=== PATIENT | female | born 1950 | race Caucasian/White ===

== ENCOUNTER 2022-04-03 10:12 | Outpatient (CLI) | payer MEDICARE ==
[2022-04-03 11:55] LABS: Hemoglobin 13.4 g/dL (12.0-15.5); Mean Corpuscular HGB CONC 34.3 g/dL (32.0-36.0); Mean Corpuscular Hemoglobin 30.9 pg (27.0-33.0); Mean Corpuscular Volume 90.1 fl (81.6-98.3); Mean Platelet Volume 10.2 fl (7.4-10.4); Platelet Count 296 10x3/uL (150-450); RBC Distribution Width 12.8 % (11.5-14.5); Red Blood Cell (RBC) Count 4.34 10x6/uL (3.90-5.03); White Blood Cell (WBC) Count 7.5 10x3/uL (3.5-10.5)
[2022-04-03 12:16] LABS: INR-International Normal Ratio 0.9; PTT 24.2 sec (22.0-33.0); Prothrombin Time 10.3 sec (9.5-12.1)
[2022-04-03 12:17] LABS: Anion Gap 15 mmol/L (10-20); BUN (Urea Nitrogen) 9 mg/dL (9.8-20.1); Calc. Creatinine Clearance 0 mL/min (70-130); Calcium 9.6 mg/dL (7.8-10.44); Carbon Dioxide 24 mmol/L (23-31); Chloride 103 mmol/L (98-107); Estimated GFR 86; Glucose 94 mg/dL (83-110); Potassium 4.2 mmol/L (3.5-5.1); Sodium 138 mmol/L (136-145)
== END 2022-04-03 10:13 | disposition home or self-care (01) ==
LOC: LABBT 10:12
PROVIDERS: ATTEND Surgery
DX: Z01.818 Encounter for other preprocedural examination (principal); M51.16 Intervertebral disc disorders with radiculopathy, lumbar region; M48.062 Spinal stenosis, lumbar region with neurogenic claudication; Z20.822 Contact with and (suspected) exposure to COVID-19
CPT/HCPCS: 80048; 85027; 85610; 85730; 87811; 93005; 93010

== ENCOUNTER 2022-04-06 08:36 | Observation (INO) | payer MEDICARE ==
[2022-04-04 15:27] VITALS: BMI 23.1
[2022-04-06] MEDS ORDERED: Clindamycin/D5W 900 mg/50 ml Premix Bag ONE (09:41)
[2022-04-06] MEDS ORDERED: Lidocaine 1% MPF 2 ML VIAL ONE (09:41)
[2022-04-06] MEDS ORDERED: Levofloxacin 500 mg/D5W 100 ml Premix Bag ONE (09:42)
[2022-04-06] MEDS ORDERED: Thrombin 5000 UNITS/5 ML VIAL ONE (10:21)
[2022-04-06] MEDS ORDERED: fentaNYL Citrate/PF 100 MCG/2 ML SYRINGE ONE ×2 (10:47→13:55)
[2022-04-06] MEDS ORDERED: PROPOFOL 200 MG/20 ML VIAL ONE (11:00)
[2022-04-06] MEDS ORDERED: Ketorolac Tromethamine 30 MG/ML VIAL ONE (11:00)
[2022-04-06] MEDS ORDERED: Ondansetron PF 4 MG/2 ML Vial ONE (11:00)
[2022-04-06] MEDS ORDERED: ePHEDrine 50 MG/ML VIAL ONE (11:00)
[2022-04-06] MEDS ORDERED: Rocuronium Bromide 10 MG/ML (10ML VIAL) ONE (11:00)
[2022-04-06] MEDS ORDERED: Dexamethasone 20 MG/5 ML VIAL ONE (11:00)
[2022-04-06] MEDS ORDERED: Neostigmine Methylsulfate 3 MG/3 ML SYRINGE ONE (11:00)
[2022-04-06] MEDS ORDERED: Glycopyrrolate 0.2 MG/ML 5 ML SYRINGE ONE (11:00)
[2022-04-06] MEDS ORDERED: traMADol HCl 50 MG TAB PO PRN (13:44)
[2022-04-06] MEDS ORDERED: Acetaminophen/Codeine 30-300mg Tablet PO PRN (13:44)
[2022-04-06] MEDS ORDERED: HYDROcodone/Acetaminophen 7.5/325 mg Tablet PO PRN (13:44)
[2022-04-06] MEDS ORDERED: diphenhydrAMINE 25 MG CAP PO PRN (13:44)
[2022-04-06] MEDS ORDERED: Acetaminophen 325 MG TAB PO PRN (13:44)
[2022-04-06] MEDS ORDERED: hydrALAZINE 20 MG/ML VIAL SLOW IVP PRN (13:46)
[2022-04-06] MEDS ORDERED: Promethazine HCl 12.5 MG in Sodium Chloride 0.9% 50 ML IVPB PRN (13:47)
[2022-04-06] MEDS ORDERED: Promethazine HCl 25 MG/ML VIAL IVPB PRN (13:59)
[2022-04-06] MEDS ORDERED: Promethazine HCl 25 MG/ML VIAL IM PRN (13:59)
[2022-04-06] MEDS ORDERED: Ondansetron HCl/PF 4 MG/2 ML Vial IVP PRN (13:59)
[2022-04-06] MEDS ORDERED: Fentanyl 100 MCG/2 ML VIAL ONE ×2 (14:16→14:50)
[2022-04-06] MEDS: Sodium Chloride 0.9% 1,000 ML IV SCH (16:53)
[2022-04-06] MEDS: Gabapentin 300 MG CAP PO SCH ×2 (16:53→20:35)
[2022-04-06] MEDS: Morphine 2 MG/ML VIAL SLOW IVP PRN ×2 (16:54→22:18)
[2022-04-06] MEDS: tiZANidine HCl 4 MG TAB PO PRN (17:59)
[2022-04-06] MEDS: Clindamycin/D5W 900 MG in Premix Bag 1 BAG IVPB SCH (18:46)
[2022-04-07] MEDS: tiZANidine HCl 4 MG TAB PO PRN (02:36)
[2022-04-07] MEDS: Clindamycin/D5W 900 MG in Premix Bag 1 BAG IVPB SCH (02:37)
[2022-04-07] MEDS: Sodium Chloride 0.9% 1,000 ML IV SCH (04:40)
[2022-04-07 08:25] VITALS: BP 110/53; TEMP 97.4
[2022-04-07] MEDS: Gabapentin 300 MG CAP PO SCH (09:58)
== END 2022-04-07 10:12 | disposition home or self-care (01) ==
LOC: SDC 08:36 → MSONC 15:54
PROVIDERS: ADMIT Surgery; ATTEND Surgery
PROC: 01NB0ZZ Release Lumbar Nerve, Open Approach (ICD-10-PCS; principal; 2022-04-06)
PROC: 0SB20ZZ Excision of Lumbar Vertebral Disc, Open Approach (ICD-10-PCS; 2022-04-06)
DX: M48.062 Spinal stenosis, lumbar region with neurogenic claudication (principal); M51.16 Intervertebral disc disorders with radiculopathy, lumbar region; M48.07 Spinal stenosis, lumbosacral region; Z79.83 Long term (current) use of bisphosphonates; Z79.899 Other long term (current) drug therapy; Z88.0 Allergy status to penicillin
CPT/HCPCS: 63047; 63048 ×2; 76000; J2270; J1100; J1885; J1956; J2405; J2704; J3010; J3370; J3490; J7050